=== PATIENT | male | born 2005 | race Caucasian/White ===

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

== ENCOUNTER 2025-01-10 21:36 | Emergency (ER) | payer OTHER, SELFPAY ==
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
[2025-01-10 22:27] VITALS: BP 127/79; PULSE 91; TEMP 36.7; O2SAT 99; BMI 35.6
--- NOTE | 2025-01-10 22:38 | ED.GENADUL1 ---
HPI HPI - General Adult General Chief complaint: Abdominal Pain Stated complaint: ABDOMINAL PAIN Time Seen by Provider: 01/10/25 22:35 Source: patient Mode of arrival: walk-in Limitations: no limitations History of Present Illness HPI narrative: 19-year-old male presenting for left lateral abdominal pain. He states that 2 or 3 nights ago he had some chicken and rice and seem to start after that. He has not been constipated nor having diarrhea. No blood in his stool or urine. He does not recall any injury. The pain does not radiate and he has no right-sided pain. Related Data Home Medications ?Medication ?Instructions ?Recorded ?Confirmed No Known Home Medications 01/10/25 01/10/25 Allergies Allergy/AdvReac Type Severity Reaction Status Date / Time azithromycin (From Zithromax) Allergy Intermediate Difficulty Verified 01/10/25 22:31 Breathing Opioid HPI Opioid Management Most Recent Opioid Data: Last Pain Scale 4 01/10/25, 23:05 Review of Systems ROS Narrative A ten point review of systems is negative except as noted above. PFSH PFSH Social History Smoking status: Current every day smoker Little interest or pleasure in doing things: not at all Feeling down, depressed, or hopeless: not at all Exam Narrative Exam Narrative: Nurses note and vital signs reviewed and patient is not hypoxic. General:The patient appears in no apparent distress. Patient is resting comfortably on cart. Skin:Warm, dry, no pallor noted.There is no rash noted. Head:Normocephalic, atraumatic Eye: Normal conjunctiva, no drainage Ears, Nose, Mouth, and Throat: oral mucosa is moist. Nares patent. Cardiovascular:Regular Rate and Rhythm Respiratory:Patient is in no distress, no accessory muscle use, lungs are clear to auscultation, no wheezing, rales or rhonchi Back:non-tender GI: Obese. No tenderness on palpation including the extreme left lateral area which is the area in question. No bruise or rash in that region. Musculoskeletal: The patient has no evidence of calf tenderness, no pitting edema, symmetrical pulses noted bilaterally Neurological:A&O, normal speech Psychiatric:Cooperative Constitutional Vital Signs, click to edit/add: Last Vital Signs Temp 98.0 F 01/10/25 22:27 Pulse 91 H 01/10/25 22:27 Resp 18 01/10/25 22:27 BP 127/79 01/10/25 22:27 Pulse Ox 99 01/10/25 22:27 O2 Del Method Room Air 01/10/25 22:27 Course Vital Signs Vital signs: Vital Signs Temperature 98.0 F 01/10/25 22:27 Pulse Rate 91 H 01/10/25 22:27 Respiratory Rate 18 01/10/25 22:27 Blood Pressure 127/79 01/10/25 22:27 Pulse Oximetry 99 01/10/25 22:27 Oxygen Delivery Method Room Air 01/10/25 22:27 Temperature 98.0 F 01/10/25 22:27 Pulse Rate 91 H 01/10/25 22:27 Respiratory Rate 18 01/10/25 22:27 Blood Pressure 127/79 01/10/25 22:27 Pulse Oximetry 99 01/10/25 22:27 Oxygen Delivery Method Room Air 01/10/25 22:27 Medical Decision Making MDM Narrative Medical decision making narrative: He would not allow us to draw blood. Urinalysis is negative and abdominal x-ray my interpretation suggest constipation. He was recommended MiraLAX. Treatment diagnosis and follow-up were discussed with the patient. Differential Diagnosis Differential Diagnosis: Constipation, kidney stone, muscle strain Lab Data Lab results reviewed: Yes I reviewed the patient's lab results Labs: Lab Results 01/10/25 Range/Units 23:15 Urine Color Lt. yellow (YELLOW) Urine Clarity Clear (CLEAR) Urine pH 6.0 (5.0-9.0) Ur Specific [place] 1.025 (1.005-1.025) Urine Protein Trace (NEG/TRACE) mg/dL Urine Glucose (UA) Negative (NEGATIVE) mg/dL Urine Ketones Negative (NEGATIVE) mg/dL Urine Occult Blood Negative (NEGATIVE) Urine Nitrite Negative (NEGATIVE) Urine Bilirubin Negative (NEGATIVE) Urine Urobilinogen 1.0 (0.2-1.0) EU/dL Ur Leukocyte Esterase Negative (NEGATIVE) Urine RBC 0-2 (0-2) #/HPF Urine WBC 0-2 A (NONE SEEN) #/HPF Ur Squamous Epith Cells None seen (NONE/RARE) #/LPF Urine Crystals None seen (None Seen) #/HPF Urine Bacteria None seen (NONE SEEN) #/HPF Urine Casts None seen (NONE SEEN) #/LPF Urine Mucus None seen (NONE SEEN) Ur Culture Indicated? No Imaging Data Abdominal x-ray: My impression: Constipation Discharge Plan Discharge Chief Complaint: Abdominal Pain Clinical Impression: Constipation Patient Disposition: Home, Self-Care Time of Disposition Decision: 00:08 Condition: Good Mode of Transportation: Private Vehicle Prescriptions / Home Meds: No Action No Known Home Medications Print Language: Montserratian Instructions: Constipation (ED) Additional Instructions: [id number] MiraLAX for constipation. Use as directed on bottle. Referrals: Physician,Non-Staff, MD [Primary Care Provider] - 1 week
--- NOTE | 2025-01-10 23:06 | XR_ITS ---
[address] [address] Patient Name: PREETI CORBIN MRN: [id number] date: 2005 Sex: M Assigned Patient Location: ER Current Patient Location: Accession/Order Number: [id number] Exam Date: 01/10/2025 23:10 Report Date: 01/11/2025 08:15 At the request of: SHAMIKA CASTELLANOS MD Procedure: XR abdomen 1V KUB: CLINICAL INFORMATION: Abdominal pain for 2 days. COMPARISON: None FINDINGS: No bowel obstruction or free air. No suspicious urinary tract calcifications. XR/XR abdomen 1V IMPRESSION: No acute process. Impression dictated by: Sammy Leon Jr., D.OoRsalina 01/11/2025 8:15 AM Dictation Location: [place] [address] Electronically authenticated by: [id number] Date: 01/11/2025 08:15
[2025-01-10 23:52] LABS: Glucose Urine UA NEGATIVE (NEGATIVE)
[2025-01-10 23:59] LABS: Cast Seen? NONE SEEN #/LPF (NONE SEEN); Crystals Seen? None Seen #/HPF (None Seen); Urine Culture Indicated NO
== END 2025-01-11 00:16 | disposition home or self-care (01) ==
PROVIDERS: Emergency Provider Emergency Medicine
DX: K59.00 Constipation, unspecified (principal); F17.200 Nicotine dependence, unspecified, uncomplicated
CPT/HCPCS: 74018; 80048; 81001; 99284